=== PATIENT | male | born 1955 | race Caucasian/White ===

== ENCOUNTER → 2019-10-23 | Day surgery (SDC) | payer BC ==
[~2019-10-23] MED LIST: Ketamine 200 MG/20 ML MDV IV ONE; Lactated Ringers 1,000 ML IV SCH; Propofol 200 MG/20 ML SDV IV ONE; fentaNYL 100 MCG/2 ML SDV IV ONE
[2019-10-23 09:07] VITALS: BP 120/73; PULSE 66
--- NOTE | 2019-10-26 09:31 | OR ---
DATE OF OPERATION: 10/23/2019 PREOPERATIVE DIAGNOSIS: HISTORY OF POLYPS. POSTOPERATIVE DIAGNOSIS: HISTORY OF POLYPS. SURGEON: Klever Brown MD PROCEDURE: FULL-LENGTH COLONOSCOPY. ANESTHESIA: MAC. COMPLICATIONS: None. SPECIMEN: None. FINDINGS: 1. Full-length colonoscopy. 2. Mild sigmoid diverticulitis. 3. No polyp recurrence. RECOMMENDATIONS: Followup colonoscopy in 6 years. INDICATIONS: The patient has had prior colonoscopies, initial one had multiple large polyps. He did have a 2-year followup. This is a followup at 4 years. DESCRIPTION OF PROCEDURE: The patient was prepped and draped, placed in a left lateral decubitus position. A lubricated Olympus colonoscope was inserted and easily advanced to the cecum. Direct visualization of the ileocecal valve and appendiceal orifice was accomplished. The bowel prep was fine. Upon withdrawal of the scope throughout the entire length of the colon, I could find no signs of any polyps, masses, ulceration, or bleeding sites. No vascular abnormalities or signs of colitis. Some scattered diverticula in the sigmoid, very mild. Rectal vault was benign. Retroflexion showed no anal lesions. Air was suctioned. Scope removed without complication. DENIZ/GARY /[id number]
== END ==
LOC: CC.SDS 07:12
PROVIDERS: ATTEND Family Medicine
DX: Z12.11 Encounter for screening for malignant neoplasm of colon (principal); K57.30 Diverticulosis of large intestine without perforation or abscess without bleeding; E78.00 Pure hypercholesterolemia, unspecified; N32.81 Overactive bladder; Z79.899 Other long term (current) drug therapy; C61 Malignant neoplasm of prostate; Z86.73 Personal history of transient ischemic attack (TIA), and cerebral infarction without residual deficits; Z86.010 Personal history of colon polyps; Z98.890 Other specified postprocedural states
CPT/HCPCS: 45378; J2704; J3010; J7120; 00812